=== PATIENT | male | born 1955 | race African-American/Black ===

== ENCOUNTER 2022-12-06 07:59 | Inpatient (IN) | payer MEDICARE, OTHER ==
[~2022-12-06] VITALS: Ht 152.4 cm; Wt 96.6 kg
[2022-12-06 08:59] LABS: HEMOGLOBIN. 10.9 g/dL (14.0-18.0); MEAN CORPUSCULAR HEMOGLOBIN 26.8 pg (28.0-32.0); MEAN CORPUSCULAR VOLUME 78.5 fL (80.0-94.0); MEAN PLATELET VOLUME 10.1 fl (7.4-10.4); PLATELET 387 x1000/uL (130-400); RED BLOOD CELL COUNT 4.08 mill/uL (4.7-6.1); RED CELL DISTRIBUTION WIDTH 15.9 % (11.6-14.6)
[2022-12-06 09:04] LABS: INR 1.3; PROTHROMBIN TIME 13.5 sec (9.6-11.0)
[2022-12-06 09:14] LABS: CHLORIDE 98 mEq/L (98-107)
[2022-12-06 09:26] LABS: ETHANOL BLOOD < 10 mg/dL
[2022-12-06 10:08] LABS: PLATELET ESTIMATE NORMAL
[2022-12-06] MEDS ORDERED: MORPHINE SULFATE 4 MG/ML CPJ (NOT FOR IM USE) IV ONE (10:15)
[2022-12-06] MEDS ORDERED: ONDANSETRON HCL 4MG/2ML INJ IV NR (10:15)
[2022-12-06] MEDS ORDERED: PIPERACILLIN/TAZ 3.375G PREMIX 50 ML IV NR (10:15)
[2022-12-06] MEDS ORDERED: SODIUM CHLORIDE 0.9% 1,000 ML IV ONE (10:15)
[2022-12-06] MEDS ORDERED: MORPHINE SULFATE 4 MG/ML CPJ (NOT FOR IM USE) IV SCH (13:00)
[2022-12-06] MEDS ORDERED: CLONIDINE 0.1MG TABLET PO PRN (14:00)
[2022-12-06] MEDS ORDERED: IPRATROPIUM/ALBUTEROL 0.5-3(2.5)MG/3ML NEB HHN PRN (14:00)
[2022-12-06] MEDS ORDERED: ONDANSETRON HCL 4MG/2ML INJ IV PRN (14:00)
[2022-12-06] MEDS: SODIUM CHLORIDE 0.9% 1,000 ML IV SCH (14:00)
[2022-12-06] MEDS ORDERED: LORAZEPAM 0.5MG TABLET PO PRN (14:00)
[2022-12-06] MEDS ORDERED: HYDROCODONE/ACETAMINOPHEN 5/325MG TABLET PO PRN (14:00)
[2022-12-06] MEDS ORDERED: DOCUSATE SODIUM 100MG CAPSULE PO PRN (14:00)
[2022-12-06] MEDS ORDERED: ACETAMINOPHEN 325MG TABLET PO PRN ×2 (14:00)
[2022-12-06] MEDS ORDERED: MORPHINE SULFATE 2 MG/ML CPJ (NOT FOR IM USE) IV PRN (14:00)
[2022-12-06 15:53] LABS: PHOSPHORUS 3.8 mg/dL (2.5-4.9)
[2022-12-06 16:22] LABS: HEPATITIS B SURFACE ANTIGEN NEGATIVE
[2022-12-06 20:54] VITALS: BP 128/77
[2022-12-07] VITALS: BP 122/64
[2022-12-07] MEDS: SODIUM CHLORIDE 0.9% 1,000 ML IV SCH ×3 (00:52→22:30)
[2022-12-07 04:00] VITALS: BP 147/79
[2022-12-07 07:59] LABS: CHLORIDE 104 mEq/L (98-107)
[2022-12-07 08:00] VITALS: BP 142/76
[2022-12-07 08:00] LABS: HEMATOCRIT. 30.4 % (42.0-52.0); HEMOGLOBIN. 10.4 g/dL (14.0-18.0); MEAN CORPUSCULAR HEMOGLOBIN 26.5 pg (28.0-32.0); MEAN CORPUSCULAR VOLUME 77.8 fL (80.0-94.0); MEAN PLATELET VOLUME 10.1 fl (7.4-10.4); PLATELET 386 x1000/uL (130-400); RED BLOOD CELL COUNT 3.91 mill/uL (4.7-6.1)
[2022-12-07 08:07] LABS: TOTAL IRON BINDING CAPACITY 223 ug/dL (250-450)
[2022-12-07 08:39] LABS: FOLIC ACID (FOLATE) SERUM 13.7 ng/mL (>5.38)
[2022-12-07 09:37] LABS: CREATINE KINASE 85 IU/L (39-308)
[2022-12-07] MEDS: ENOXAPARIN 30MG/0.3ML SYR SUBCUT SCH (11:30)
[2022-12-07] MEDS: AMLODIPINE 5MG TABLET PO SCH (11:30)
[2022-12-07 12:00] VITALS: BP 163/89
[2022-12-07] MEDS ORDERED: THIAMINE HCL 100 MG in SODIUM CHLORIDE 0.9% 49 ML IV NR (13:00)
[2022-12-07 14:27] LABS: PLATELET ESTIMATE NORMAL
[2022-12-07] MEDS: CEFEPIME 2,000 MG in DEXT 5% WATER 100 ML IV SCH ×2 (15:15→22:29)
[2022-12-07 16:00] VITALS: BP 121/71
[2022-12-07 16:15] LABS: CLARITY URINE CLEAR (CLEAR); COLOR URINE DARK YELLOW (YELLOW); KETONES URINE NEGATIVE (NEGATIVE); LEUKOCYTE ESTERASE URINE NEGATIVE (NEGATIVE); NITRITE URINE NEGATIVE (NEGATIVE); OCCULT BLOOD URINE NEGATIVE (NEGATIVE); PROTEIN URINE 1+ (NEGATIVE); SPECIFIC GRAVITY URINE 1.017 (1.005-1.030)
[2022-12-07 17:57] LABS: *AMPHETAMINES SCREEN URINE NEGATIVE (NEGATIVE); *BARBITURATES SCREEN URINE NEGATIVE (NEGATIVE); *BENZODIAZEPINES SCREEN URINE PRESUMTIVE POSITIVE (NEGATIVE); *COCAINE SCREEN URINE NEGATIVE (NEGATIVE); CANNABINOID URINE SCREEN NEGATIVE (NEGATIVE); METHADONE URINE SCREEN NEGATIVE (NEGATIVE); OPIATES URINE SCREEN PRESUMTIVE POSITIVE (NEGATIVE); PHENCYCLIDINE URINE SCREEN NEGATIVE (NEGATIVE)
[2022-12-07 20:00] VITALS: BP 122/62
[2022-12-08] VITALS: BP 126/72
[2022-12-08 04:00] VITALS: BP 124/62
[2022-12-08] MEDS: SODIUM CHLORIDE 0.9% 1,000 ML IV SCH (06:10)
[2022-12-08 06:29] LABS: HEMATOCRIT. 29.6 % (42.0-52.0); MEAN CORPUSCULAR HEMOGLOBIN 26.4 pg (28.0-32.0); MEAN CORPUSCULAR VOLUME 78.3 fL (80.0-94.0); MEAN PLATELET VOLUME 10.3 fl (7.4-10.4); PLATELET 392 x1000/uL (130-400); RED BLOOD CELL COUNT 3.77 mill/uL (4.7-6.1); RED CELL DISTRIBUTION WIDTH 15.7 % (11.6-14.6)
[2022-12-08 06:41] LABS: CHLORIDE 109 mEq/L (98-107)
[2022-12-08 08:00] VITALS: BP 136/57
[2022-12-08] MEDS: AMLODIPINE 5MG TABLET PO SCH (08:31)
[2022-12-08] MEDS: CEFEPIME 2,000 MG in DEXT 5% WATER 100 ML IV SCH (08:31)
[2022-12-08] MEDS ORDERED: AMLO5TAB88 PO (10:45)
[2022-12-08] MEDS: ENOXAPARIN 30MG/0.3ML SYR SUBCUT SCH (11:53)
[2022-12-08 12:00] VITALS: BP 126/61
[2022-12-08] MEDS ORDERED: METR-167 MT (13:14)
[2022-12-08] MEDS ORDERED: LEVO750T68 MT (13:14)
[2022-12-08 14:21] VITALS: BP 126/61
[2022-12-08] MEDS ORDERED: NALOXONE HCL 0.4MG/ML VIAL IV PRN (15:30)
[2022-12-08 21:36] LABS: PLATELET ESTIMATE NORMAL
== END 2022-12-08 14:25 | disposition left against medical advice (07) | DRG 871 ==
LOC: ER 08:20 → 7EST 12:53 → EDBEDREQ 12:54 → EDBEDREQTM 12:54 → EDBEDREQ 12:55
PROVIDERS: ADMIT Internal Medicine; ATTEND Internal Medicine
DX: A41.9 Sepsis, unspecified organism (principal); G92.8 Other toxic encephalopathy; E46 Unspecified protein-calorie malnutrition; N17.9 Acute kidney failure, unspecified; Z68.41 Body mass index [BMI] 40.0-44.9, adult; C22.8 Malignant neoplasm of liver, primary, unspecified as to type; D50.9 Iron deficiency anemia, unspecified; I12.9 Hypertensive chronic kidney disease with stage 1 through stage 4 chronic kidney disease, or unspecified chronic kidney disease; I71.43 Infrarenal abdominal aortic aneurysm, without rupture; K72.90 Hepatic failure, unspecified without coma; N18.9 Chronic kidney disease, unspecified; B19.20 Unspecified viral hepatitis C without hepatic coma; E66.01 Morbid (severe) obesity due to excess calories; R74.01 Elevation of levels of liver transaminase levels; E80.6 Other disorders of bilirubin metabolism; Z74.01 Bed confinement status; Z53.29 Procedure and treatment not carried out because of patient's decision for other reasons
CPT/HCPCS: 36415; 70551; 71045; 74176; 76705; 80048; 80053; 80076; 80305; 80320; 81003; 82105; 82140; 82248; 82270; 82378; 82550; 82607; 82728; 82746; 83036; 83540; 83550; 83735; 83880; 84100; 84145; 84443; 84484; 85025; 85044; 86300; 86301; 86304; 86705; 86709; 86803; 87340; 93005; 99285; C1893; J0692; J1650; J2270; J2405; J2543; J3411; J7060; G0480